=== PATIENT | female | born 1990 | race Caucasian/White ===

== ENCOUNTER 2023-05-04 08:00 | Inpatient (IN) ==
[2023-05-04] MEDS ORDERED: OXYTOCIN 30 UNITS/500 ML BAG IV PRN ×3 (11:14→20:09)
[2023-05-04] MEDS ORDERED: LIDOCAINE 1% LOCAL 20 ML VIAL INFIL PRN (11:14)
[2023-05-04] MEDS ORDERED: PENICILLIN G POTASSIUM 6 MU in DEXTROSE 5% 250 ML IV STA (11:37)
[2023-05-04] MEDS: LACTATED RINGER'S 1,000 ML IV PRN ×3 (11:37→16:45)
--- NOTE | 2023-05-04 11:37 | History & Physical Report ---
Date of Service May 04, 2023 Assessment & Plan (1) 38 weeks gestation of : (2) Gestational diabetes mellitus (GDM) affecting , antepartum: (3) Chronic hypertension affecting : (4) Positive GBS test: Plan admit, iv, labs. plan pitocin induction. arom in time. pcn for gbs. pt agreeable. bsgs now and q2hr in active labor. Admission and Anticipated Discharge Date Admission Date: May 04, 2023 History of Present Illness Chief Complaint: planned induction chtn Primary Care Provider: Yashira Fierro, DO 33yo at 38+wks egthais presents to L&D with chtn for planned induction. Patient notes some intermittent ctx. No rom. No vb. +FM. Denies cruz or visual change or pain. Also with gdm controlled with diet. PNC c/b 1. GDM 2. CHTN, nl growth us 3. History of Hep c, no detectable viral load 4. GBS pos urine. PNL rh pos, ri, gbs pos OBH: x 1. sab x 1 GYNH: nl paps, no stds Allergies Allergy/AdvReac Type Severity Reaction Status Date / Time No Known Allergies Allergy Verified 05/03/23 09:17 Home Medications Medication Instructions Recorded Confirmed Type labetalol 200 mg tablet 300 mg PO BID 10/06/22 05/04/23 History vitamin with calcium 1 tab PO DAILY #90 tabs 12/05/22 05/04/23 Rx no.72-iron 27 mg-folic acid 1 mg tablet ( Vitamins Plus Low Iron) aspirin 81 mg tablet,delayed 81 mg PO DAILY #90 tabs 02/09/23 05/04/23 Rx release (Adult Aspirin Regimen) acetone (urine) test (Ketone Urine #50 ea 03/24/23 05/03/23 Rx Test strips) blood sugar diagnostic (OneTouch #150 ea 03/24/23 05/03/23 Rx Verio test strips) blood-glucose meter (OneTouch #1 ea 03/24/23 05/03/23 Rx Verio Reflect Meter) lancets 33 gauge (OneTouch Delica #150 ea 03/24/23 05/03/23 Rx Lancets) Patient History Medical History Anxiety Chronic hepatitis C Chronic hypertension Chronic neck pain Drug abuse Encounter for anatomic survey Hx of migraines Hx of varicella Supervision of high-risk Unfavorable cervix in term Surgical History H/O foot surgery History of liver biopsy [place] teeth removed Family History Father Bilateral kidney stones Aunt Breast cancer Hypertension Mother Hypertension Grandfather Tuberculosis Denies family history of Ovarian cancer Prostate cancer Colorectal cancer Social History Smoking Status: Never smoker Second Hand Exposure: No; Do You Dip or Chew Tobacco: No; Tobacco Cessation Education Requested by Patient: No Hx Alcohol Use: No Hx Substance Use: No Preferred Language: Mohawk Communication Ability: Effective Claim Professional Required: No Beliefs That Will Affect Care: None marital status: marital status details: Luis Pereyra III [phone]) [phone] Current Living Situation: Spouse Current Living Situation Comment: and son 3 y/o current occupational status: employed current occupation: [employer] Other Information That Helps Us Care for You: No Feels Safe at Home: Yes Safety Concerns: Feels Safe At This Time Assistive Devices: None Review of Systems as per Subjective / HPI Physical Exam Constitutional: WD/WN, vitals as above Respiratory: normal respiratory effort, lungs clear to auscultation Cardiovascular: Rate/Rhythm: regular rate and regular rhythm Gastrointestinal (Abdomen): soft gravid nt efw 7-8# Musculoskeletal: no edema nontender calves Neurologic: grossly normal Psychiatric: A+Ox3, euthymic affect Genitourinary: Manual OB Exam: + cervical dilation 3 cm, + cervical effacement 50% and + station -2 OB Exam Monitor Tracing: + external FHT monitor used, + external uterine monitor used (irreg), + category I and + normal FHT variability Results & Data Vital Signs (Past 12 Hours) Vital Signs Temp Pulse Resp BP 05/04/23 10:17 98.2 F 18 132/99 05/04/23 10:25 103 H 132/99 05/04/23 10:10 101 H 141/105 H Coding Level of Care Code None Diagnoses 38 weeks gestation of Z3A.38 Gestational diabetes mellitus (GDM) affecting , antepartum O24.419 Chronic hypertension affecting O10.919 Positive GBS test B95.1
[2023-05-04] MEDS ORDERED: CALCIUM CARBONATE 500 MG CHEWABLE TAB PO PRN (12:07)
[2023-05-04 12:47] LABS: Hematocrit (blood only) 37.9 % (37.0-47.0); Mean Corpuscular Hemoglobin 29.3 pg (25.0-34.0); Mean Corpuscular Hgb Conc 34.3 g/dL (32.0-36.0); Mean Corpuscular Volume 85.4 fL (80.0-100.0); Mean Platelet Volume 9.8 fL (9.4-12.4); Platelet Count 249 K/uL (130-400); RDW Coefficient of Variation 13.3 % (11.5-14.5); RDW Standard Deviation 41.4 fL (36.4-46.3); Red Blood Count 4.44 M/uL (4.20-5.40); White Blood Count 11.62 K/ul (4.8-10.8)
[2023-05-04 13:04] LABS: Albumin Globulin Ratio 1.2 (0.9-2); Albumin Level 3.6 gm/dl (3.4-5.0); BUN Creatinine Ratio 20.4 (10-20); Bilirubin,Total 0.3 mg/dl (0.2-1.0); Calcium 8.2 mg/dl (8.6-10.3); Creatinine Clr Calc Pharmacy 149.6 ml/min; Est GFR (African American) 144.7 ml/min; Est GFR (Non-African American) 124.9 ml/min; Globulin 2.9 gm/dl (2.5-4.0); Potassium 3.9 mmol/L (3.5-5.1); Total Protein 6.5 gm/dl (6.0-8.3)
[2023-05-04] MEDS ORDERED: LABETALOL HCL 100 MG TAB PO ONE (13:53)
[2023-05-04] MEDS ORDERED: SODIUM CHLORIDE 0.9% PF INJ 10 ML VIAL ONE (14:15)
[2023-05-04] MEDS ORDERED: ePHEDrine sulfate 50 MG/ML AMP ONE (14:15)
[2023-05-04] MEDS ORDERED: fentaNYL citrate PF 100 MCG/2 ML VIAL ONE (14:15)
[2023-05-04] MEDS ORDERED: LIDOCAINE 2%/EPINEPHRINE 1:200,000 20 ML PF ONE (14:15)
[2023-05-04] MEDS ORDERED: BUPIVACAINE 0.25% PF 30 ML VIAL ONE (14:15)
[2023-05-04] MEDS ORDERED: fentaNYL 2MCG/ML ROPIVACAINE 1.25MG/ML 100 ML BAG EPI ONE (14:16)
[2023-05-04] MEDS ORDERED: PENICILLIN G POTASSIUM 3 MU in DEXTROSE 5% 100 ML IV PRN (14:37)
--- NOTE | 2023-05-04 16:47 | Anesthesiology Consultation ---
Date of Service May 04, 2023 Assessment & Plan Chart Review Chart Review: Patient NOT seen in Pre Admission Testing and Acceptable Risk for Labor Epidural Consults Requested none ASA ASA2 Proposed Anesthesia Anesthesia Type: Labor Epidural Risk / Benefits Reviewed With: PT / POA / Parent / Guardian, Accepts Plan and Informed Consent Obtained History Height/Weight Height: 5 ft 3 in Weight: 79.832 kg Allergies Allergy/AdvReac Type Severity Reaction Status Date / Time No Known Allergies Allergy Verified 05/03/23 09:17 Medications Home Medications Medication Instructions Recorded Confirmed Last Taken labetalol 200 mg tablet 300 mg PO BID 10/06/22 05/04/23 05/04/23 07:00 vitamin with calcium 1 tab PO DAILY #90 tabs 12/05/22 05/04/23 Unknown no.72-iron 27 mg-folic acid 1 mg tablet ( Vitamins Plus Low Iron) aspirin 81 mg tablet,delayed 81 mg PO DAILY #90 tabs 02/09/23 05/04/23 Unknown release (Adult Aspirin Regimen) acetone (urine) test (Ketone Urine #50 ea 03/24/23 05/03/23 Unknown Test strips) blood sugar diagnostic (OneTouch #150 ea 03/24/23 05/03/23 Unknown Verio test strips) blood-glucose meter (OneTouch #1 ea 03/24/23 05/03/23 Unknown Verio Reflect Meter) lancets 33 gauge (OneTouch Delica #150 ea 03/24/23 05/03/23 Unknown Lancets) Active Medications Generic Name Dose Route Start Last Admin Trade Name Freq PRN Reason Stop Dose Admin Calcium Carbonate 1,000 mg 05/04/23 12:07 05/04/23 12:18 Calcium Carbonate 500 Mg Chewable Tab PO 06/03/23 12:06 1,000 mg Q4 PRN Administration Indigestion Lactated Ringer's 1,000 mls @ 125 mls/hr 05/04/23 11:14 05/04/23 16:45 Lr IV 05/06/23 11:13 999 mls/hr .Q8H PRN Administration L&D Protocol Protocol Oxytocin 30 units in 500 mls @ 17 mls/hr 05/04/23 11:14 05/04/23 16:00 Pitocin IV 05/06/23 11:13 1.02 units/hr .Q24H PRN 17 mls/hr Labor Induction/Augmentation Titration Protocol 1.02 UNITS/HR Penicillin G Potassium 3 mu/ 106 mls @ 100 mls/hr 05/04/23 14:37 05/04/23 15:33 Dextrose IV 05/14/23 14:36 100 mls/hr Q4H PRN Administration GBS(+) Until Delivery Past Medical History Medical History Anxiety Chronic hepatitis C Chronic hypertension Chronic neck pain Drug abuse Encounter for anatomic survey Hx of migraines Hx of varicella Supervision of high-risk Unfavorable cervix in term Exercise / Class Metabolic Activity II 4-5 Yardwork/Stairs/Walk up hill Past Family History Family History Father Bilateral kidney stones Aunt Breast cancer Hypertension Mother Hypertension Grandfather Tuberculosis Denies family history of Ovarian cancer Prostate cancer Colorectal cancer Past Surgical History Surgical History H/O foot surgery History of liver biopsy [place] teeth removed Past Anesthesia History No Hx of Anesthesia Complications and No Family Hx of Anesthesia Complications History of PONV No Hx of PONV and No Hx of Motion Sickness Social History Smoking Status: Never smoker tobacco type: cigarettes Do You Dip or Chew Tobacco: No Hx Alcohol Use: No Hx Substance Use: No substance use type: does not use, former substance user, heroin and opiates Last Used Substance Other:: 2010 Physical Exam Vital Signs Last Vital Signs Temp 36.7 C 05/04/23 15:00 Pulse 75 05/04/23 16:46 Resp 18 05/04/23 16:40 BP 139/99 05/04/23 16:46 Pulse Ox 98 05/04/23 16:45 ENMT Mouth: no dentition abnormality Thyromental Distance: > or= 3.5 Finger Breadths Mallampati Class: II Neck normal visual inspection Respiratory normal respiratory effort Auscultation: lungs clear to auscultation bilaterally Cardiovascular Rate/Rhythm: regular rate and regular rhythm Psychiatric Orientation: alert Testing Laboratory Results 05/04/23 12:05 05/04/23 12:05 05/04/23 11:04 POC Glucose 107 H
[2023-05-04] MEDS ORDERED: SODIUM CHLORIDE 0.9% PF INJ 10 ML VIAL EPI STA (16:48)
[2023-05-04] MEDS ORDERED: fentaNYL 2MCG/ML ROPIVACAINE 1.25MG/ML 100 ML BAG EPI PRN (16:48)
[2023-05-04] MEDS ORDERED: fentaNYL citrate PF 100 MCG/2 ML VIAL EPI PRN (16:48)
[2023-05-04] MEDS ORDERED: NALOXONE HCL 1 MG in SODIUM CHLORIDE 0.9% 1000ML 1,000 ML IV PRN (16:48)
[2023-05-04] MEDS ORDERED: BUPIVACAINE 0.25% PF 30 ML VIAL EPI PRN (16:48)
[2023-05-04] MEDS ORDERED: NALOXONE HCL 0.4 MG/1 ML VIAL/CARP IV PRN (16:48)
[2023-05-04] MEDS ORDERED: SODIUM CHLORIDE 0.9% PF INJ 10 ML VIAL EPI PRN (16:48)
[2023-05-04] MEDS ORDERED: fentaNYL citrate PF 100 MCG/2 ML VIAL EPI STA (16:48)
[2023-05-04] MEDS ORDERED: BUPIVACAINE 0.25% PF 30 ML VIAL EPI STA (16:48)
[2023-05-04] MEDS ORDERED: NALBUPHINE HCL INJ 10 MG/ML AMP IV PRN (16:48)
[2023-05-04] MEDS ORDERED: LIDOCAINE 2% MPF LOCAL 5 ML VIAL EPI PRN (16:48)
[2023-05-04] MEDS ORDERED: ePHEDrine sulfate 50 MG/ML AMP IV PRN (16:48)
[2023-05-04] MEDS ORDERED: diphenhydrAMINE 50 MG/ML VIAL IV PRN (16:48)
[2023-05-04] MEDS ORDERED: LIDOCAINE 2%/EPINEPHRINE 1:200,000 20 ML PF EPI STA (16:48)
[2023-05-04] MEDS ORDERED: ROPIVACAINE 0.5% PF 5 MG/ML 20 ML VIAL EPI PRN (16:48)
--- NOTE | 2023-05-04 17:36 | Labor Progress Brief Note ---
Date of Service May 04, 2023 Subjective pt comfortable after epidural. Assessment & Plan (1) 38 weeks gestation of : (2) Gestational diabetes mellitus (GDM) affecting , antepartum: (3) Chronic hypertension affecting : (4) Positive GBS test: Plan will see arom helps labor. c/w pit. bps stable. fhts categ 1. Admission and Anticipated Discharge Date Admission Date: May 04, 2023 Physical Exam Constitutional: WD/WN, vitals as above Genitourinary: Manual OB Exam: + cervical dilation 4 cm, + cervical effacement 60%, + station -2 and + amniotic fluid (arom) clear OB Exam Monitor Tracing: + external FHT monitor used, + external uterine monitor used, + category I and + normal FHT variability Results & Data Vital Signs (Past 12 Hours) Vital Signs Temp Pulse Resp BP Pulse Ox 05/04/23 10:17 98.2 F 18 132/99 05/04/23 17:30 69 98 05/04/23 17:27 68 153/95 H 05/04/23 17:25 70 97 05/04/23 17:20 67 97 05/04/23 17:08 97.9 F 05/04/23 17:15 68 98 05/04/23 17:11 68 152/100 H 05/04/23 17:10 77 98 05/04/23 17:05 69 97 05/04/23 17:00 70 18 98 05/04/23 16:55 73 18 98 05/04/23 16:52 69 146/92 H 05/04/23 16:50 83 97 05/04/23 16:51 88 16 148/92 H 05/04/23 16:48 81 18 154/99 H 05/04/23 16:45 72 98 05/04/23 16:46 75 139/99 05/04/23 16:44 69 18 161/105 H 05/04/23 16:42 77 162/102 H 05/04/23 16:40 18 05/04/23 16:40 74 18 154/89 H 98 05/04/23 16:39 83 175/109 H 05/04/23 16:35 72 99 05/04/23 16:30 86 99 05/04/23 16:25 72 98 05/04/23 16:24 77 147/102 H 05/04/23 16:20 77 98 07/07/23 16:15 75 98 05/04/23 16:10 70 99 05/04/23 16:05 73 98 05/04/23 16:00 75 99 05/04/23 15:55 72 98 05/04/23 15:54 71 157/104 H 05/04/23 15:50 74 99 05/04/23 15:24 86 141/103 H 05/04/23 15:10 72 157/98 H 05/04/23 15:00 18 05/04/23 15:00 98.1 F 18 05/04/23 14:53 79 152/103 H 05/04/23 13:53 76 145/92 H 05/04/23 13:37 79 149/103 H 05/04/23 13:22 82 146/102 H 05/04/23 13:07 76 156/107 H 05/04/23 12:53 82 153/111 H 05/04/23 12:23 82 154/95 H 05/04/23 12:07 83 148/96 H 05/04/23 11:52 83 146/95 H 05/04/23 10:25 103 H 132/99 05/04/23 10:10 101 H 141/105 H Coding Level of Care Code None Diagnoses 38 weeks gestation of Z3A.38 Gestational diabetes mellitus (GDM) affecting , antepartum O24.419 Chronic hypertension affecting O10.919 Positive GBS test B95.1
[2023-05-04] MEDS ORDERED: ONDANSETRON INJ 2 MG/ML 2 ML VIAL IV PRN (19:17)
[2023-05-04] MEDS ORDERED: miSOPROStoL 200 MCG TAB ONE (19:49)
[2023-05-04] MEDS ORDERED: DIPHTHERIA/TETANUS/PERTUSSIS Vaccine (Tdap, Age 7+yrs) 0.5mL SYR/VL IM ONE (20:09)
[2023-05-04] MEDS ORDERED: BENZOCAINE 20% AER SPR 82.5 GM CAN EXT PRN (20:09)
[2023-05-04] MEDS ORDERED: ACETAMINOPHEN 325 MG TAB PO PRN (20:09)
[2023-05-04] MEDS ORDERED: miSOPROStoL 200 MCG TAB PR ONE (20:09)
[2023-05-04] MEDS ORDERED: HYDROCORTISONE ACETATE 25 MG SUPP PR PRN (20:09)
[2023-05-04] MEDS ORDERED: OXYTOCIN 20 UNITS in LACTATED RINGER'S 1,000 ML IV SCH (20:15)
--- NOTE | 2023-05-04 20:29 | Delivery Summary ---
Vaginal Delivery Summary Date of Service May 04, 2023 Vaginal Delivery Summary The patient dilated to complete and pushed to deliver a viable male infant Apgars 8 and 9 via over intact perineum. Loose nuchal cord--delivered through. Shoulders and body delivered with ease. M/N bulb suctioned. Infant was vigorous and crying at . Cord clamped at 30 seconds of life and to maternal abdomen where the cord was then doubly clamped and cut. Large amount brisk bleeding noted from periurethral laceration. Multiple figure of eight sutures with 3-0 vicryl placed and hemostasis improved. Urine catheter placed during this time to ensure no stitches near urethra. Urine output 200cc. Placenta delivered spontaneously and intact, three-vessel cord. Hemostasis not achieved with dilute pitocin and uterine massage and therefore 800mcg rectal cytotec placed and hemostasis improving. Small left vaginal laceration bleeding and also stitched with figure of eight suture of 3-0 vicryl. Hemostasis adequate. Cervix and sulci intact. EBL 600 cc. Mother and baby stable in r ecovery. [facility] Vaginal Delivery Charge Delivery Type Details:
[2023-05-04] MEDS: IBUPROFEN 600 MG TAB PO PRN (21:01)
[2023-05-04] MEDS: DOCUSATE SODIUM 100 MG CAP PO SCH (21:02)
[2023-05-04] MEDS: LABETALOL HCL 300 MG TAB PO SCH (21:02)
--- NOTE | 2023-05-04 21:03 | Anesthesia Procedure Note ---
Date of Service May 04, 2023 Anesthesia Post Epidural Note Vital Signs Vital Signs: Temp Pulse Resp BP Pulse Ox 36.7 C 91 H 18 135/88 97 05/04/23 20:05 05/04/23 20:41 05/04/23 20:05 05/04/23 20:41 05/04/23 19:33 Notes Mental Status: alert / awake / arousable Nausea / Vomiting: adequately controlled Pain: adequately controlled Airway Patency, RR, SpO2: stable & adequate BP & HR: stable & adequate Hydration State: stable & adequate Neuraxial Anesthesia: was administered and sensory block is resolving Anesthetic Complications: no major complications apparent and Pt Satisfied with anesthetic care Epidural: Removed without complications and With tip intact
[2023-05-05] MEDS: IBUPROFEN 600 MG TAB PO PRN ×5 (02:37→22:21)
--- NOTE | 2023-05-05 07:30 | Obstetrical Progress Note ---
Date of Service May 05, 2023 Assessment & Plan (1) Encounter for visit: Plan routine care. stable. hgb stable. Day #:: 1 Subjective Ambulation: ambulating normally Voiding: no voiding problems Diet Tolerance:: regular diet Lochia:: Small Feeding Type:: breast feeding no complaints. Constitutional: + as per Subjective / HPI Physical Exam Constitutional WD/WN, vitals as above Respiratory normal respiratory effort, lungs clear to auscultation Cardiovascular Rate/Rhythm: regular rate and regular rhythm Gastrointestinal (Abdomen) Inspection/Auscultation: abdomen normal to inspection Percussion/Palpation: abdomen soft Fundus firm 2cm down Musculoskeletal nt calves no edema Neurologic grossly normal Psychiatric A+Ox3, euthymic affect Results & Data Vital Signs (Past 12 Hours) Vital Signs Temp Pulse Pulse Resp BP BP Pulse Ox 05/05/23 04:30 98.2 F 72 20 132/88 96 05/04/23 23:40 98.1 F 89 20 131/86 98 05/04/23 22:35 98.6 F 18 05/04/23 20:50 18 05/04/23 20:05 98.1 F 18 05/04/23 22:06 89 137/93 05/04/23 21:51 86 134/93 05/04/23 21:37 95 H 137/90 05/04/23 21:21 92 H 140/91 05/04/23 21:07 91 H 139/82 05/04/23 20:41 91 H 135/88 05/04/23 20:26 96 H 127/92 05/04/23 20:11 83 106/71 05/04/23 20:05 82 107/68 05/04/23 20:01 88 118/63 05/04/23 19:56 92 H 145/106 H 05/04/23 19:47 87 142/104 H 05/04/23 19:33 102 H 97 O2 Del Method 05/05/23 04:30 Room Air 05/04/23 23:40 Room Air 05/04/23 22:35 05/04/23 20:50 05/04/23 20:05 05/04/23 22:06 05/04/23 21:51 05/04/23 21:37 05/04/23 21:21 05/04/23 21:07 05/04/23 20:41 05/04/23 20:26 05/04/23 20:11 05/04/23 20:05 05/04/23 20:01 05/04/23 19:56 05/04/23 19:47 05/04/23 19:33
[2023-05-05 07:58] LABS: Hematocrit (blood only) 27.2 % (37.0-47.0); Hemoglobin 9.4 g/dl (12.0-16.0)
[2023-05-05] MEDS: oxyCODONE/ACETAMINOPHEN 5mg/325mg TAB PO PRN ×2 (08:24→12:38)
[2023-05-05] MEDS: PRENATAL VITAMIN 1 TAB PO SCH (08:24)
[2023-05-05] MEDS: DOCUSATE SODIUM 100 MG CAP PO SCH ×2 (08:24→20:42)
[2023-05-05] MEDS: LABETALOL HCL 300 MG TAB PO SCH ×2 (08:25→21:00)
[2023-05-05] MEDS ORDERED: bisacodyL 5 MG TABEC PO SCH (20:00)
[2023-05-06] MEDS: IBUPROFEN 600 MG TAB PO PRN ×2 (04:15→08:44)
[2023-05-06] MEDS: PRENATAL VITAMIN 1 TAB PO SCH (08:45)
[2023-05-06] MEDS: LABETALOL HCL 300 MG TAB PO SCH (08:45)
[2023-05-06] MEDS: DOCUSATE SODIUM 100 MG CAP PO SCH (08:45)
--- NOTE | 2023-05-06 08:59 | Obstetrical Progress Note ---
Date of Service May 06, 2023 Assessment & Plan (1) Encounter for care and examination after delivery: satisfactory progress continue current labetalol dose- BP normotensive on this dose check BP this week in the office Subjective Ambulation: ambulating normally Voiding: no voiding problems Passing Gas:: Yes Diet Tolerance:: regular diet Lochia:: Small Feeding Type:: breast feeding cramping with nursing. also has noted increased swelling in her feet and face. no PIH symptoms Review of Systems All systems reviewed & are unremarkable except as noted in HPI & below Physical Exam Constitutional WD/WN, vitals as above Psychiatric A+Ox3, euthymic affect Genitourinary OB Exam Abdomen: + fundal height Fundus: + firm and + relation to umbilicus (2 below) Results & Data Vital Signs (Past 12 Hours) Vital Signs Temp Pulse Resp BP Pulse Ox O2 Del Method 05/06/23 04:15 97.9 F 83 16 123/86 98 Room Air
== END 2023-05-06 11:50 | disposition home or self-care (01) | DRG 807 ==
LOC: 4S1 10:01 → 4E2 23:05